=== PATIENT | male | born 1950 | race African-American/Black ===

== ENCOUNTER 2021-09-16 14:52 | Emergency (ER) | payer OTHER ==
[~2021-09-16] VITALS: Ht 172.7 cm; Wt 104.3 kg
[2021-09-16 14:57] VITALS: BP 162/120
[2021-09-16 15:18] LABS: BASOPHILS # (AUTO) 0.1 K/uL (0.00-0.22); BASOPHILS % (AUTO) 0.5 % (0.0-2.0); EOSINOPHILS # (AUTO) 0.2 K/uL (0-0.4); EOSINOPHILS % (AUTO) 2.2 % (0.0-4.0); HEMATOCRIT 45.4 % (36-52); HEMOGLOBIN 15.2 g/dL (12.0-18.0); LYMPHOCYTES # (AUTO) 2.1 K/uL (2.0-11.5); LYMPHOCYTES % (AUTO) 21.8 % (20.5-51.1); MEAN CORPUSCULAR HEMOGLOBIN 29 pg (27-31); MEAN CORPUSCULAR HGB CONC 34 g/dL (33-37); MEAN CORPUSCULAR VOLUME 87.2 fL (80-94); MONOCYTES # (AUTO) 0.9 K/uL (0.8-1.0); MONOCYTES % (AUTO) 9.7 % (1.7-9.3); NEUTROPHILS # (AUTO) 6.5 K/uL (1.8-7.7); NEUTROPHILS % (AUTO) 65.8 % (42.2-75.2); PLATELET COUNT (AUTO) 202 K/uL (140-450); RED BLOOD CELL COUNT(AUTO) 5.21 MIL/uL (4.20-6.10); RED CELL DISTRIBUTION WIDTH 15.3 % (11.6-13.7); WHITE BLOOD COUNT (AUTO) 9.8 K/uL (4.8-10.8)
--- NOTE | 2021-09-16 15:36 | NUR ---
71 Y MALE BIBA FROM HOME DUE TO NON-RADIATING CHEST PAIN X FEW HOURS. PAIN 8/10, SQUEEZING, WITH NO PROVOKING FACTORS. PT STATES THAT HE HAS EXPERIENCED THIS IN THE PAST. 325 MG ASPRIN AND 0.4 NITRO GIVEN EN ROUTE TO ER. IN ED, PT HYPERTENSIVE AT 162/120. AOX4. NORMAL RATE REGULAR RHYTHM. CLEAR BREATH SOUNDS. PT POSITIONED COMFORTABLY IN BED WITH 2 SIDERAILS UP. ERMD MADE AWARE OF PT STATUS. PMH: HTN, BPH MEDs: NONE ALLERGIES: PENICILLIN
--- NOTE | 2021-09-16 15:42 | NUR ---
XRAY BEDSIDE WITH PATIENT
[2021-09-16 15:46] LABS: ALBUMIN 3.2 g/dL (3.4-5.0); ANION GAP 8.6 (8-16); ASPARTATE AMINOTRANSFERASE 10 U/L (15-37); CARBON DIOXIDE 31.9 mmol/L (21-32); CHLORIDE 104 mmol/L (98-107); CREATININE 1.2 mg/dL (0.6-1.3); GLUCOSE 122 mg/dL (74-106); POTASSIUM 3.5 mmol/L (3.5-5.1); SODIUM SERUM 141 mmol/L (136-145); UREA NITROGEN, BLOOD 16 mg/dL (7-18)
[2021-09-16] MEDS ORDERED: methylPREDNISolone SS 125 MG/2 ML VIAL IVP ONE (16:55)
[2021-09-16] MEDS ORDERED: ALBUTEROL SULFATE/IPRATROPIU 3 ML SOL IH ONE (16:55)
[2021-09-16 17:34] LABS: TOTAL BILIRUBIN 0.3 mg/dL (0.0-1.0)
--- NOTE | 2021-09-16 17:50 | NUR ---
TUSHAR SWAB DONE. WALKED TO LAB.
--- NOTE | 2021-09-16 18:30 | NUR ---
SPOKE WITH BRIANNE RAI, REGARDING REASON FOR TRANSFER. EXPLAINED THAT PT IS BEING TRANSFERRED TO [facility] DUE TO INSURANCE REQUEST.
--- NOTE | 2021-09-16 18:49 | NUR ---
ATTEMPTED TO CALL RECEIVING HOSPITAL ([facility]) BUT NO RESPONSE AT THIS TIME.
--- NOTE | 2021-09-16 18:59 | NUR ---
Patient to be transferred to [facility]. Is being transferred due to INSURANCE. Receiving facility has accepting physician and available space. ER physician has signed transfer form. Patient or responsible green party has agreed to transfer and signed form. Patient belongings inventoried and will be sent with patient. Copy of nursing notes, lab reports, EKG, Physicians Orders and X-rays to be sent with patient. Report called to BETH KU at receiving facility. [facility] ambulance service has been called for transfer. ETA is [phone].
--- NOTE | 2021-09-16 19:17 | NUR ---
REPORT GIVEN TO BETH BUTLER. ALL CARES TRANSFERRED AT THIS TIME.
--- NOTE | 2021-09-16 19:35 | NUR ---
[facility] AT BEDSIDE
--- NOTE | 2021-09-16 19:54 | NUR ---
Maury feliciano in ED - 09/16/21 at 2010 by RACHAEL PT TAKEN BY [facility]
[2021-09-16] MEDS ORDERED: CLONIDINE HYDROCHLORIDE 0.1 MG TAB PO ONE (20:00)
--- NOTE | 2021-09-16 20:00 | NUR ---
PT BP ELEVATED 195/100. VERBAL ORDER FOR LABETOLOL 10MG IVP RECEIVED AND CARRIED OUT.
[2021-09-16] MEDS ORDERED: LABETALOL 100 MG/20 ML VIAL ONE (20:03)
[2021-09-16] MEDS ORDERED: LABETALOL 100 MG/20 ML VIAL IVP ONE (20:05)
--- NOTE | 2021-09-16 20:05 | NUR ---
[facility] TRANSPORTED PT TO [facility] AT THIS TIME.
[2021-09-16 20:06] VITALS: BP 191/143
--- NOTE | 2021-09-16 20:10 | NUR ---
PATIENT TRANSFERED TO [facility] REPORTED WAS GAVE FROM THE PREVIOUS SHIFT BP WAS 191/143 WE GAVE LAVETALOL IV FOR THE REST PATIENT WAS STABLE ALERT ORIENTED TIMES 4 NOT COMPLAINING OF PAIN AT THIS TIME //Ivan CAMPOS
== END 2021-09-16 20:05 | disposition short-term general hospital (02) ==
LOC: MED 14:52
DX: J44.9 Chronic obstructive pulmonary disease, unspecified (principal); Z20.822 Contact with and (suspected) exposure to COVID-19; R07.89 Other chest pain; I10 Essential (primary) hypertension; Z88.0 Allergy status to penicillin
CPT/HCPCS: 36415; 71045; 80053; 83880; 84484; 85025; 85379; 87426; 93005; 96374; 96375; 99285; J2930; J3490; Q0092